=== PATIENT | male | born 1995 | race Caucasian/White ===

== ENCOUNTER 2021-10-13 18:30 | Emergency (ER) | payer OTHER ==
[2021-10-13] MEDS ORDERED: Clindamycin 150 MG CAP ONE ×2 (18:49)
== END 2021-10-13 18:55 | disposition home or self-care (01) ==
LOC: BURERS 18:30
DX: K04.7 Periapical abscess without sinus (principal); K02.9 Dental caries, unspecified; K21.9 Gastro-esophageal reflux disease without esophagitis; I10 Essential (primary) hypertension; Z87.891 Personal history of nicotine dependence
CPT/HCPCS: 99282